=== PATIENT | female | born 1980 | race Caucasian/White ===

== ENCOUNTER → 2019-03-05 | Outpatient (CLI) | payer BC ==
--- NOTE | 2019-03-05 08:44 | CT ---
EXAMINATION TYPE: CT sinus wo con DATE OF EXAM: 03/05/2019 COMPARISON: NONE HISTORY: Chronic sinusitis per order. Headaches with vision issues per patient. CT DLP: 596.5 mGycm. Automated Exposure Control for Dose Reduction was Utilized. TECHNIQUE: CT scan of the sinuses is performed without contrast, axial images are obtained, coronal r eformatted images are also reviewed. FINDINGS: The paranasal sinuses including the frontal, ethmoid, sphenoid, and maxillary sinuses bila terally are well-aerated without abnormal opacification. The ostiomeatal complex is patent bilateral ly on the coronal images. Visualized portion of mastoid air cells show no abnormal opacification. The globes are intact bilate rally. Visualized portion of brain parenchyma is unremarkable. IMPRESSION: The sinuses are clear and the ostiomeatal complex is patent bilaterally.
== END ==
LOC: RADCTMAIN 08:12
PROVIDERS: ATTEND Otolaryngology
DX: J32.9 Chronic sinusitis, unspecified (principal)
CPT/HCPCS: 70486

== ENCOUNTER 2021-03-28 12:16 | Outpatient (CLI) | payer BC ==
[2021-03-28 13:22] LABS: Appearance,Urine Clear (Clear); Bilirubin,Urine Negative (Negative); Blood,Urine Negative (Negative); Color,Urine Light Yellow; Glucose,Urine (UA) Negative (Negative); Ketones,Urine Negative (Negative); Leukocyte Esterase,Urine Negative (Negative); Nitrite,Urine Negative (Negative); PH, Urine 6.5 (5.0-8.0); Protein,Urine Negative (Negative); Specific Gravity,Urine 1.006 (1.001-1.035); Urobilinogen,Urine <2.0 mg/dL (<2.0)
[2021-03-28 13:41] VITALS: BP 122/76; PULSE 102; RESP 18; TEMP 96.6
--- NOTE | 2021-05-08 11:19 | P.MSEPDOC ---
Presenting Problems - Arrival Data Date of Arrival on Unit: 03/28/21 Time of Arrival on Unit: 12:15 Mode of Transport: Ambulatory - Complaint OB-Reason for Admission/Chief Complaint: Pain Comment: back pain, cramping, "sour stomach" Medical History - Information : 4 Para: 3 Number of Living Children: 3 - Gestational Age Gestational Age by FRANK (wks/days): 36 Weeks and 6 Days Review of Systems - Review of Systems Constitutional: No problems Breast: No problems ENT: No problems Cardiovascular: No problems Respiratory: No problems Gastrointestinal: No problems Genitourinary: No problems Musculoskeletal: No problems Neurological: No problems Skin: No problems Vital Signs - Temperature Temperature: 96.6 F Temperature Source: Temporal Artery Scan - Pulse Right Sitting Brachial Pulse Rate: 102 Pulse Assessment Method: Automatic Cuff - Respirations Respiratory Rate: 18 Oxygen Delivery Method: Room Air O2 Sat by Pulse Oximetry: 96 - Blood Pressure Right Arm Sitting Blood Pressure: 122/76 Blood Pressure Mean: 91 Blood Pressure Source: Automatic Cuff Medical Screen Scoring - Assessment - Baby A Baseline FHR: 120 Physician Notification - Physician Notified Physician Notified Date: 03/28/21 Physician Notified Time: 13:30 Physician: Kal Jameson Order Received: Yes (dc home) - Notification Comment Comment: Dc home. Pain 2/10, mild. cervix 1cm and unchanged in one hour, urine WNL. Pt with appt tomorrow, follow up as scheduled. Disposition - Disposition OB Disposition: Discharge to home Discharge Date: 03/28/21 Discharge Time: 13:40 I agree with the RN Medical Screening Exam: Yes Physician's MSE Comment: I have neither seen nor examined the patient. Case reviewed; plan agreed upon as documented in EMR&OBIX.: Yes Diagnosis: RELATED CONDITIONS, UNSPECIFIED, THIRD TRIMESTER
== END 2021-03-28 13:41 | disposition home or self-care (01) ==
LOC: FBPOP 12:16
PROVIDERS: ATTEND Obstetrics & Gynecology
DX: O99.891 Other specified diseases and conditions complicating pregnancy (principal); M54.9 Dorsalgia, unspecified; O09.523 Supervision of elderly multigravida, third trimester; Z3A.36 36 weeks gestation of pregnancy
CPT/HCPCS: 59025; 81003; 99213

== ENCOUNTER 2021-04-06 21:40 | Outpatient (CLI) | payer BC ==
[2021-04-06 23:24] VITALS: BP 117/71; PULSE 99; RESP 16; TEMP 97.1
--- NOTE | 2021-04-11 07:52 | P.MSEPDOC ---
Presenting Problems - Arrival Data Date of Arrival on Unit: 04/06/21 Time of Arrival on Unit: 21:40 Mode of Transport: Ambulatory - Complaint OB-Reason for Admission/Chief Complaint: Other Comment: Patient arrives to triage with complaints that she is just not "feeling well",. she is nauseated and hot. Medical History - Information : 4 Para: 3 Term: 2 : 1 Abortions: Spontaneous or Elective: 0 Number of Living Children: 3 - Gestational Age Gestational Age by FRANK (wks/days): 38 Weeks and 1 Days Review of Systems - Review of Systems Constitutional: No problems Breast: No problems ENT: No problems Cardiovascular: No problems Respiratory: No problems Gastrointestinal: No problems Genitourinary: No problems Musculoskeletal: No problems Neurological: No problems Skin: No problems Vital Signs - Temperature Temperature: 97.1 F Temperature Source: Oral - Pulse Right Brachial Pulse Rate: 99 Pulse Assessment Method: Automatic Cuff - Respirations Respiratory Rate: 16 Oxygen Delivery Method: Room Air O2 Sat by Pulse Oximetry: 98 - Blood Pressure Right Arm Blood Pressure: 117/71 Blood Pressure Mean: 86 Blood Pressure Source: Automatic Cuff Medical Screen Scoring (Pre) - Cervical Exam Dilation: 1-3 cm = 1 Effacement: More than 50% = 2 Membranes: Intact - Uterine Contractions Frequency: N/A Duration: N/A Intensity: N/A - Maternal Vital Signs Maternal Temperature: N/A Maternal Blood Pressure: N/A Signs of Preeclampsia: Nausea/Vomiting = 1 Maternal Respirations: N/A - Maternal Trauma Maternal Trauma: N/A - Assessment - Baby A Baseline FHR: 125 Heart Rate - NICHD Category: Category I (Normal) = 0 NST: Reactive Position: N/A Station: N/A - Total Score - Baby A Total Score - Baby A: 4 - Total Score - Baby B Total Score - Baby B: 4 - Total Score - Baby C Total Score - Baby C: 4 - Level of Risk - Baby A Level of Risk - Baby A: Low (0-5) - Level of Risk - Baby B Level of Risk - Baby B: Low (0-5) - Level of Risk - Baby C Level of Risk - Baby C: Low (0-5) Physician Notification (Pre) - Physician Notified Physician Notified Date: 04/06/21 Physician Notified Time: 23:00 New Order Received: Yes - Notification Comment Comment: RN reported that patient arrived to triage stating that she "did not feel well,. was nauseated and hot." Patients vital signs WNL. Reactive NST. Cervical exam of 60/-2. was unchanged after one hour. Patient states she is feeling better but is still. uncomfortable. Patient to be discharged home with instructions to return if symptoms. worsen or if contractions become stronger and closer together. Patient verbalizes. understanding. Disposition - Disposition OB Disposition: Physician follow up in office, Discharge to home Discharge Date: 04/06/21 Discharge Time: 23:19 I agree with the RN Medical Screening Exam: Yes Case reviewed; plan agreed upon as documented in EMR&OBIX.: Yes Comments: Patient was neither seen nor examined by me Diagnosis: FALSE LABOR AT OR AFTER 37 COMPLETED WEEKS OF GESTATION
== END 2021-04-06 23:19 | disposition home or self-care (01) ==
LOC: FBPOP 21:40
PROVIDERS: ATTEND Obstetrics & Gynecology
DX: O47.1 False labor at or after 37 completed weeks of gestation (principal); Z3A.38 38 weeks gestation of pregnancy
CPT/HCPCS: 59025; 99213

== ENCOUNTER 2021-04-09 06:17 | Outpatient (CLI) | payer BC ==
[2021-04-09 06:45] VITALS: BP 116/66; PULSE 96; RESP 16; TEMP 96.8
--- NOTE | 2021-04-09 10:23 | P.MSEPDOC ---
Presenting Problems - Arrival Data Date of Arrival on Unit: 04/09/21 Time of Arrival on Unit: 06:17 Mode of Transport: Ambulatory - Complaint OB-Reason for Admission/Chief Complaint: Possible Onset of Labor, Dizziness Comment: Patient arrives to triage with contractions for the past three hours. Patient. states they seem to be every 3-4 minutes and makes her stomach feel like its "burning". Medical History - Information : 4 Para: 3 Term: 2 : 1 Abortions: Spontaneous or Elective: 0 Number of Living Children: 3 - Gestational Age Gestational Age by FRANK (wks/days): 38 Weeks and 4 Days Review of Systems - Review of Systems Constitutional: No problems Breast: No problems ENT: No problems Cardiovascular: No problems Respiratory: No problems Gastrointestinal: No problems Genitourinary: No problems Musculoskeletal: No problems Neurological: No problems Skin: No problems Vital Signs - Temperature Temperature: 96.8 F Temperature Source: Temporal Artery Scan - Pulse Right Brachial Pulse Rate: 96 Pulse Assessment Method: Automatic Cuff - Respirations Respiratory Rate: 16 Oxygen Delivery Method: Room Air - Blood Pressure Right Arm Blood Pressure: 116/66 Blood Pressure Mean: 82 Blood Pressure Source: Automatic Cuff Medical Screen Scoring (Pre) - Cervical Exam Dilation: 1-3 cm = 1 Membranes: Intact - Uterine Contractions Frequency: > 5 minutes apart = 1 Duration: N/A Intensity: N/A - Maternal Vital Signs Maternal Temperature: N/A Signs of Preeclampsia: N/A Maternal Respirations: N/A - Maternal Trauma Maternal Trauma: N/A - Assessment - Baby A Baseline FHR: 135 Heart Rate - NICHD Category: Category I (Normal) = 0 NST: Reactive Position: N/A Station: N/A - Total Score - Baby A Total Score - Baby A: 2 - Total Score - Baby B Total Score - Baby B: 2 - Total Score - Baby C Total Score - Baby C: 2 - Level of Risk - Baby A Level of Risk - Baby A: Low (0-5) - Level of Risk - Baby B Level of Risk - Baby B: Low (0-5) - Level of Risk - Baby C Level of Risk - Baby C: Low (0-5) Physician Notification (Pre) - Physician Notified Physician Notified Date: 04/09/21 Physician Notified Time: 07:04 New Order Received: Yes Disposition - Disposition OB Disposition: Discharge to home Discharge Date: 04/09/21 Discharge Time: 07:20 I agree with the RN Medical Screening Exam: Yes Case reviewed; plan agreed upon as documented in EMR&OBIX.: Yes Diagnosis: False labor
== END 2021-04-09 07:20 | disposition home or self-care (01) ==
LOC: FBPOP 06:17
PROVIDERS: ATTEND Obstetrics & Gynecology
DX: O47.1 False labor at or after 37 completed weeks of gestation (principal); Z3A.38 38 weeks gestation of pregnancy
CPT/HCPCS: 59025; 99213

== ENCOUNTER 2021-04-11 13:03 | Inpatient (IN) | payer BC ==
[2021-04-11] MEDS ORDERED: OXYTOCIN 10 UNIT/ML 1 ML VIAL IM PRN (13:40)
[2021-04-11] MEDS ORDERED: METHYLERGONOVINE 0.2 MG/ML 1 ML AMP IM PRN (13:40)
[2021-04-11] MEDS ORDERED: CARBOPROST TROMETHAMINE 250 MCG/ML 1 ML AMP IM PRN (13:40)
[2021-04-11] MEDS ORDERED: TERBUTALINE 1 MG/ML VIAL SQ PRN (13:40)
[2021-04-11] MEDS ORDERED: LIDOCAINE 0.5% (PF) 5 MG/ML (50 ML SDV) SQ PRN (13:40)
[2021-04-11] MEDS ORDERED: LACTATED RINGERS 1,000 ML IV SCH (13:45)
[2021-04-11] MEDS ORDERED: OXYTOCIN 30 UNITS/500 ML NS 30 UNIT in SALINE 1 500ML.BAG IV SCH ×2 (13:45→18:15)
[2021-04-11 14:09] LABS: Basophils % (A) 0 %; Eosinophils # (A) 0.1 k/uL (0-0.7); Eosinophils % (A) 1 %; HCT 39.9 % (34.0-46.0); HGB 13.9 gm/dL (11.4-16.0); Lymphocytes # (A) 1.5 k/uL (1.0-4.8); Lymphocytes % (A) 12 %; MCH 31.1 pg (25.0-35.0); MCHC 34.8 g/dL (31.0-37.0); MCV 89.4 fL (80.0-100.0); Mean Platelet Volume 8.9; Monocytes # (A) 0.6 k/uL (0-1.0); Monocytes % (A) 5 %; Neutrophils # (A) 9.8 k/uL (1.3-7.7); Neutrophils % (A) 81 %; Platelet Count 180 k/uL (150-450); RBC 4.46 m/uL (3.80-5.40); WBC 12.1 k/uL (3.8-10.6)
[2021-04-11] MEDS ORDERED: SODIUM CHLORIDE 0.9% 100 ML BAG ONE (17:05)
[2021-04-11] MEDS ORDERED: fentaNYL (PF) 50 MCG/ML 5 ML AMP ONE (17:05)
[2021-04-11] MEDS ORDERED: ROPIVACAINE 5MG/ML 20ML VIAL ONE (17:05)
[2021-04-11] MEDS ORDERED: diphenhydrAMINE 50 MG CAP PO PRN (18:14)
[2021-04-11] MEDS ORDERED: ACETAMINOPHEN TAB 325 MG TAB PO PRN (18:14)
[2021-04-11] MEDS ORDERED: diphenhydrAMINE 25 MG CAP PO PRN (18:14)
[2021-04-11] MEDS ORDERED: BENZOCAINE/MENTHOL SPRAY 1 GM/SPRAY AEROSOL TOPICAL PRN (18:14)
[2021-04-11] MEDS ORDERED: SIMETHICONE 80 MG CHEWABLE PO PRN (18:14)
[2021-04-11] MEDS ORDERED: HYDROCORTISONE 2.5% RECTAL CREAM 30 GM TUBE RECTAL PRN (18:14)
[2021-04-11] MEDS ORDERED: HYDROcodone/APAP 5-325MG 1 EACH TAB PO PRN (18:14)
[2021-04-11] MEDS ORDERED: LANOLIN CREAM 5 GM TUBE TOPICAL PRN (18:14)
[2021-04-11] MEDS ORDERED: HYDROcodone/APAP 7.5-325MG 1 EACH TAB PO PRN (18:14)
[2021-04-11] MEDS ORDERED: ZOLPIDEM 5 MG TAB PO PRN (18:14)
[2021-04-11] MEDS ORDERED: diphenhydrAMINE 50 MG/ML 1 ML VIAL IVP PRN ×2 (18:14)
--- NOTE | 2021-04-11 18:20 | P.HPOB ---
History of Present Illness H&P Date: 04/11/21 Chief Complaint: 38-6/7 weeks, spontaneous rupture of membranes, early labor The patient is a 40-year-old 4 para 12/20/2002 admitted at 38-6/7 weeks as established by last menstrual period and confirmed by 19 week ultrasound. She is admitted with documented spontaneous rupture of membranes with clear fluid. On labor and delivery, all signs reassuring with a category 1 heart rate tracing. Her has been essentially uncomplicated though she does fall into the category of advanced maternal age and had negative testing for trisomy. Her was otherwise uncomplicated and group B strep status is negative. Obstetrical history: 4 para 12/20/2002 with 2 previous term deliveries and 1 delivery at approximately 35 weeks. All deliveries were vaginal. Current statistics are listed in history present illness. EDC of 04/20/2021 was established by last menstrual period and confirmed by 19 week ultrasound. Laboratory workup demonstrates a blood type of B- with a negative antibody screen. Rubella status is immune. The remainder of the laboratory workup was within normal limits. Trisomy testing was negative. She did have an elevated second trimester Glucola which led to a normal three-hour glucose clayton erance test. Group B strep status is negative. Gynecologic history: Unremarkable with no history of any infections to include STDs. Review of Systems Review of systems is confined to history of present illness. Past Medical History Past Medical History: No Reported History History of Any Multi-Drug Resistant Organisms: None Reported Past Surgical History: No Surgical Hx Reported Past Anesthesia/Blood Transfusion Reactions: No Reported Reaction Past Psychological History: No Psychological Hx Reported Smoking Status: Never smoker Past Alcohol Use History: None Reported Past Drug Use History: None Reported - Past Family History Mother Family Medical History: No Reported History Medications and Allergies Home Medications Medication Instructions Recorded Confirmed Type Aspirin 81 mg PO DAILY 03/28/21 04/11/21 History Pnv No.95/Ferrous Fum/Folic AC 1 each PO DAILY 03/28/21 04/11/21 History [ Multivitamin Tablet] Allergies Allergy/AdvReac Type Severity Reaction Status Date / Time No Known Allergies Allergy Verified 04/11/21 13:31 Exam Vital Signs Temp Pulse Resp BP 04/11/21 13:42 98.4 F 99 16 119/74 Intake and Output 04/11/21 04/11/21 04/11/21 06:59 14:59 22:59 Other: Weight 90.718 kg In general, this is a well-developed, well-nourished white female in no acute distress. Her heart has a regular rhythm and rate without murmur. Her lungs are clear to auscultation bilaterally in all can. Her abdomen is gravid, nondistended, has normal active bowel sounds, is soft, nontender, and without any palpable masses aside from the uterine fundus. Her extremities are without any cyanosis, clubbing, or edema and are nontender to palpation bilaterally. Initial digital cervical examination demonstrated her cervix to be 1-2 cm dilated, 90% effaced, with the vertex in presentation at -1-2 station. Spontaneous rupture of membranes is documented. Results Result Diagrams: 04/11/21 14:00 Abnormal Lab Results - Last 24 Hours (Table) 04/11/21 Range/Units 14:00 WBC 12.1 H (3.8-10.6) k/uL Neutrophils # 9.8 H (1.3-7.7) k/uL Assessment and Plan (1) Spontaneous rupture of amniotic membranes Current Visit: Yes Status: Acute Code(s): [id number] - SNOMED Code(s): 100406668 (2) Active labor at term Current Visit: Yes Status: Acute Code(s): [id number] - SNOMED Code(s): 21247934 Plan: The patient is admitted for active management of labor. At the time of admission, she is not [place] regularly. She will be observed for approximate hour and, should or significant contractions not begin, she will have Pitocin augmentation started. She is a good candidate for either IV or epidural analgesia, whichever she may choose. She will otherwise have close maternal and surveillance and expectant management will be practiced.
--- NOTE | 2021-04-11 18:23 | P.PROBDLV ---
Vaginal Delivery Note - . Vaginal Delivery Note: The patient is a 40-year-old 4 para 12/20/2002 admitted at 38-6/7 weeks by good dating parameters perches admitted with documented spontaneous rupture of membranes with clear fluid. Her has been uncomplicated though she does qualify as advanced maternal age and underwent trisomy testing which was negative. Her was otherwise uncomplicated and group B strep status is negative. She additionally is known to be Rh- and received RhoGAM at 28 weeks. On labor and delivery, she had Pitocin augmentation started after approximately 2 hours of observation. She then began to make fairly rapid progress and had an epidural catheter placed around the onset of the active phase of labor. She progressed very quickly to complete and +2 to +3 station. She then pushed over the course of approximately 2-3 contractions to a normal spontaneous vaginal delivery of a viable 8 lbs. 1 oz. baby boy with Apgars of 9 at 1 minute and 9 at 5 minutes delivered in the right occiput anterior position. The placenta was delivered spontaneously, intact, and grossly normal with a grossly normal three- vessel cord inserted approximate 4-5 cm from the margin of the placental disc. There was a small second-degree midline perineal laceration likely over the site of a previous laceration which was repaired in standard fashion using 3-0 chromic catgut without difficulty. As stated blood loss for the case is approximately 200 mL. There were no complications. All sponge, instrument, and needle counts were correct. Both mother and infant are resting comfortably in recovery.
[2021-04-11] MEDS: SENNOSIDES-DOCUSATE SODIUM 1 EACH TAB PO SCH (19:48)
[2021-04-11] MEDS: IBUPROFEN 600 MG TAB PO SCH (19:49)
[2021-04-12] MEDS: IBUPROFEN 600 MG TAB PO SCH ×3 (02:19→12:55)
[2021-04-12] MEDS ORDERED: Rhogam IMMUNE GLOBULIN 1,500 UNIT/1 ML IM ONE (05:05)
[2021-04-12 06:42] LABS: Basophils % (A) 0 %; Eosinophils # (A) 0.1 k/uL (0-0.7); Eosinophils % (A) 1 %; HCT 36.6 % (34.0-46.0); HGB 12.5 gm/dL (11.4-16.0); Lymphocytes # (A) 1.9 k/uL (1.0-4.8); Lymphocytes % (A) 14 %; MCH 30.8 pg (25.0-35.0); MCV 90.6 fL (80.0-100.0); Mean Platelet Volume 9.4; Monocytes # (A) 0.8 k/uL (0-1.0); Monocytes % (A) 5 %; Neutrophils # (A) 11.1 k/uL (1.3-7.7); Neutrophils % (A) 79 %; Platelet Count 153 k/uL (150-450); RBC 4.04 m/uL (3.80-5.40)
[2021-04-12] MEDS: SENNOSIDES-DOCUSATE SODIUM 1 EACH TAB PO SCH (07:39)
--- NOTE | 2021-04-12 08:40 | P.DS ---
Providers Date of admission: 04/11/21 13:45 Expected date of discharge: 04/12/21 Attending physician: Kal Jameson Primary care physician: Stated None - Discharge Diagnosis(es) (1) Spontaneous rupture of amniotic membranes Current Visit: Yes Status: Acute (2) Active labor at term Current Visit: Yes Status: Acute (3) Normal spontaneous vaginal delivery Current Visit: Yes Status: Acute Hospital Course: The patient is a 40-year-old 4 para 2103 admitted at 38-6/7 weeks by good dating parameters. She is admitted with documented spontaneous rupture of membranes and clear fluid. She has had an uncomplicated and fell into the category of advanced maternal age. She did undergo negative testing for trisomy. Group B strep status is negative. On labor and delivery, she had Pitocin augmentation started and then an epidural catheter placed for analgesia. She made rapid progress through the active course of labor to complete and then pushed fairly quickly to a normal spontaneous vaginal delivery of a viable 8 lbs. 1 oz. baby boy with Apgars of 9 at 1 minute and 9 at 5 minutes. Her course was unremarkable with vital signs remaining stable and her temperature was afebrile throughout. She was deemed stable for discharge on day #1 was discharged home to follow-up in the office in 6 weeks' time routinely. Discharge instructions included calling for any significantly increased bleeding or foul-smelling lochia, significantly increased fever or abdominal pain, perineal complaints, breast complaints, or anything else that concerned her. She is additionally instructed to have nothing in the vagina for at least 6 weeks time to include intercourse. She understood all of her instructions and agrees to follow up as noted above. Discharge medications included continued vitamins as she has opted to breast-feed. She additionally was to use [id number] analgesic pain medications as needed. Maternal blood type is B- and cord blood was sent for evaluation for the necessity of RhoGAM prior to discharge. Rubella status is immune. Procedures: #1. Pitocin augmentation #2. Epidural analgesia #3. Normal spontaneous vaginal delivery #4. Repair of perineal laceration Patient Condition at Discharge: Stable Plan - Discharge Summary New Discharge Prescriptions: No Action Aspirin 81 mg PO DAILY Pnv No.95/Ferrous Fum/Folic AC [ Multivitamin Tablet] 1 each PO DAILY Discharge Medication List Aspirin 81 mg PO DAILY 03/28/21 [History] Pnv No.95/Ferrous Fum/Folic AC [ Multivitamin Tablet] 1 each PO DAILY 03/28/21 [History] Follow up Appointment(s)/Referral(s): Kal Jameson MD [STAFF PHYSICIAN] - 6 Weeks Discharge Disposition: HOME SELF-CARE
[2021-04-12 08:58] VITALS: RESP 18
[2021-04-12 18:34] VITALS: BP 121/69; PULSE 103; TEMP 98.1
== END 2021-04-12 19:14 | disposition home or self-care (01) | DRG 807 ==
LOC: FBPOP 13:03 → 4FBP 13:45
PROVIDERS: ADMIT Obstetrics & Gynecology; ATTEND Obstetrics & Gynecology
PROC: 10E0XZZ Delivery of Products of Conception, External Approach (ICD-10-PCS; principal; 2021-04-11)
PROC: 0KQM0ZZ Repair Perineum Muscle, Open Approach (ICD-10-PCS; 2021-04-11)
DX: O70.1 Second degree perineal laceration during delivery (principal); Z37.0 Single live birth; Z3A.38 38 weeks gestation of pregnancy; Z79.82 Long term (current) use of aspirin
CPT/HCPCS: 59025; 84112; 85025; 85461; 86803; 86850; 86900; 86901; 99213